=== PATIENT | male | born 1980 | race African-American/Black ===

== ENCOUNTER 2022-06-05 20:31 | Emergency (ER) | payer OTHER ==
[~2022-06-05] VITALS: Ht 180.3 cm; Wt 72.7 kg
[2022-06-05] MEDS ORDERED: PROPARACAINE HCL 0.5% 15 ML OPHTHALMIC SOLUTION OU ONE (21:00)
[2022-06-05] MEDS ORDERED: FLUORESCEIN SODIUM 1 MG STRIP OU ONE (21:00)
[2022-06-05] MEDS ORDERED: IBUPROFEN 800 MG TABLET PO ONE (23:15)
[2022-06-05] MEDS ORDERED: ERYTHROMYCIN 0.5% 3.5 GM TUBE OPHTHALMIC OINTMENT OD ONE (23:15)
[2022-06-05 23:18] VITALS: BP 112/62
== END 2022-06-05 23:56 ==
LOC: EMS 20:38
DX: H11.31 Conjunctival hemorrhage, right eye (principal); S00.11XA Contusion of right eyelid and periocular area, initial encounter; W21.05XA Struck by basketball, initial encounter; Y93.67 Activity, basketball; Y92.89 Other specified places as the place of occurrence of the external cause; Y99.8 Other external cause status
CPT/HCPCS: 70450; 70480; 99284